=== PATIENT | female | born 1930 | race Caucasian/White ===

== ENCOUNTER → 2016-06-03 | Outpatient (CLI) | payer MEDICARE, BC ==
[~2016-06-03] MED LIST: ALEVE 220MG220 MG PO; ARICEPT 5MG PO; ASPIRIN 32325 MG/TAB PO; CALCIUM + D 6001 TA1 PO; CENTRUM SILVER1 CTB PO; DIABETA 5MG5 MG/TAB PO; DIOVAN320 MG PO; EFFEXOR XR75 MG/CAP PO; FERROUS SU325 MG/TAB PO; FISH OIL1000 MG PO; FOLIC ACID 40400 MCG PO; GLUCOPHAGE500 MG/TAB PO; HCTZ 25MG TAB25 MG PO; KLOR-CON 1010 MEQ PO; LUTEIN20 MG PO; NORVASC 10MG10 MG PO; PLAVIX 75MG TAB75 MG PO; PRILOTC PO; SEE LIST; SYNTHROID0.1 MG/TAB PO; TOPROL XL 25MG25 MG PO; UNABLE; VITAMIN C500 MG PO; VITAMIN D32000 IU PO; ZANTAC 150MG T150 MG PO; ZOCOR 40MG40 MG PO
== END ==
LOC: COL.RAD 09:25
DX: M25.512 Pain in left shoulder (principal); M19.012 Primary osteoarthritis, left shoulder
CPT/HCPCS: J3301; Q9967

== ENCOUNTER → 2017-01-21 | Outpatient (CLI) | payer MEDICARE, BC ==
[2017-01-21 14:50] VITALS: BP 183/85; PULSE 60
[2017-01-21 15:00] VITALS: BP 169/84; PULSE 60
[2017-01-21 15:14] VITALS: BP 161/77
== END ==
LOC: COL.RAD 13:18
DX: M25.512 Pain in left shoulder (principal)
CPT/HCPCS: J3301; Q9967